=== PATIENT | male | born 1960 | race Caucasian/White ===

== ENCOUNTER 2017-04-21 12:18 | Inpatient (IN) | payer MEDICARE, MEDICAID ==
[~2017-04-21] VITALS: Ht 180.3 cm; Wt 67.2 kg
[2017-04-21 14:36] VITALS: BP 135/83
[2017-04-21] MEDS ORDERED: QUEtiapine FUMARATE 100 MG TABLET PO PRN (16:00)
[2017-04-21] MEDS ORDERED: ZOLPIDEM TARTRATE 10 MG TABLET PO PRN (16:00)
[2017-04-21 16:04] VITALS: BP 120/78
[2017-04-21] MEDS: QUEtiapine FUMARATE 200 MG TABLET PO SCH (21:26)
[2017-04-22 06:31] VITALS: BP 125/90
[2017-04-22 08:20] VITALS: BP 139/66
[2017-04-22 09:23] LABS: BASOPHILS % (AUTO) 0.5 % (0.0-2.0); EOSINOPHILS % (AUTO) 4.9 % (1.0-6.0); HEMOGLOBIN 16.3 g/dL (13.5-17.5); LYMPHOCYTES # (AUTO) 1.3 K/uL (1.0-4.8); LYMPHOCYTES % (AUTO) 22.3 % (22.0-44.0); MEAN CORPUSCULAR HEMOGLOBIN 31.1 pg (26.0-34.0); MEAN CORPUSCULAR HGB CONC 33.9 G/dL (31.0-37.0); MEAN CORPUSCULAR VOLUME 92 fL (80-100); MONOCYTES # (AUTO) 0.4 K/uL (0.1-1.0); MONOCYTES % (AUTO) 6.4 % (2.0-9.0); NEUTROPHILS # (AUTO) 3.8 K/uL (1.8-7.7); NEUTROPHILS % (AUTO) 65.9 % (40.0-70.0); PLATELET COUNT (AUTO) 153 K/uL (150-450); RED BLOOD CELL COUNT(AUTO) 5.25 MIL/uL (4.50-5.90); RED CELL DISTRIBUTION WIDTH 13.1 % (11.5-14.5); WHITE BLOOD COUNT (AUTO) 5.8 K/uL (4.5-11.0)
[2017-04-22 09:31] LABS: ALANINE AMINOTRANSFERASE 21 U/L (12-78); ALBUMIN 3.2 g/dL (3.4-5.0); ANION GAP 6 mmol/L (8-16); ASPARTATE AMINOTRANSFERASE 12 U/L (15-37); BILIRUBIN,TOTAL 0.6 mg/dL (0.1-1.0); CALCIUM, TOTAL 8.4 mg/dL (8.8-10.5); CARBON DIOXIDE 30 mmol/L (22-29); CHLORIDE 107 mmol/L (98-107); CHOL/HDL RATIO 3.9 (4.2-7.3); CREATININE 1.07 mg/dL (0.60-1.30); GLOMERULAR FILTR. RATE CALC > 60 mL/min (>60); POTASSIUM 4.2 mmol/L (3.5-5.1); SODIUM SERUM 143 mmol/L (136-145); TOTAL PROTEIN, SERUM 5.9 g/dL (6.4-8.2); UREA NITROGEN, BLOOD 17 mg/dL (7-18)
[2017-04-22] MEDS: SERTRALINE HCL 50 MG TABLET PO SCH (09:53)
[2017-04-22] MEDS ORDERED: IBUPROFEN 600 MG TABLET PO PRN (10:30)
[2017-04-22] MEDS ORDERED: ACETAMINOPHEN 325 MG TABLET PO PRN (10:30)
[2017-04-22 16:00] VITALS: BP 127/72
[2017-04-22] MEDS: QUEtiapine FUMARATE 200 MG TABLET PO SCH (21:00)
[2017-04-23 08:21] VITALS: BP 123/63
[2017-04-23] MEDS: LORazepam 2 MG TABLET PO PRN ×2 (08:46→17:19)
[2017-04-23] MEDS: SERTRALINE HCL 50 MG TABLET PO SCH (08:46)
[2017-04-23 16:00] VITALS: BP 129/84
[2017-04-23] MEDS: QUEtiapine FUMARATE 200 MG TABLET PO SCH (21:09)
[2017-04-24 06:39] VITALS: BP 129/76
[2017-04-24 08:23] VITALS: BP 126/66
[2017-04-24] MEDS: SERTRALINE HCL 50 MG TABLET PO SCH (08:37)
[2017-04-24] MEDS ORDERED: BISACODYL 5 MG EC TABLET PO PRN (10:00)
[2017-04-24 16:00] VITALS: BP 123/69
[2017-04-24] MEDS: LORazepam 2 MG TABLET PO PRN (17:15)
[2017-04-24] MEDS: QUEtiapine FUMARATE 200 MG TABLET PO SCH (20:38)
[2017-04-25 08:34] VITALS: BP 111/83
[2017-04-25] MEDS: SERTRALINE HCL 50 MG TABLET PO SCH (09:48)
[2017-04-25 16:30] VITALS: BP 112/78
[2017-04-25] MEDS: LORazepam 2 MG TABLET PO PRN (16:38)
[2017-04-25] MEDS: QUEtiapine FUMARATE 200 MG TABLET PO SCH (20:09)
[2017-04-26 09:04] VITALS: BP 124/85
[2017-04-26] MEDS: SERTRALINE HCL 50 MG TABLET PO SCH (09:15)
[2017-04-26] MEDS: LORazepam 2 MG TABLET PO PRN (16:22)
[2017-04-26 17:34] VITALS: BP 125/93
[2017-04-26] MEDS: QUEtiapine FUMARATE 200 MG TABLET PO SCH (20:25)
[2017-04-27 03:42] VITALS: BP 134/75
[2017-04-27 08:29] VITALS: BP 119/74
[2017-04-27] MEDS: SERTRALINE HCL 50 MG TABLET PO SCH (09:31)
[2017-04-27 16:06] VITALS: BP 122/80
[2017-04-27 16:26] VITALS: BP 130/83
[2017-04-27] MEDS: LORazepam 2 MG TABLET PO PRN (18:17)
[2017-04-27] MEDS: QUEtiapine FUMARATE 200 MG TABLET PO SCH (20:46)
[2017-04-28 06:12] VITALS: BP 136/74
[2017-04-28 08:59] VITALS: BP 120/65
[2017-04-28] MEDS: SERTRALINE HCL 50 MG TABLET PO SCH (09:04)
[2017-04-28 16:08] VITALS: BP 136/87
[2017-04-28] MEDS: LORazepam 2 MG TABLET PO PRN (18:55)
[2017-04-28] MEDS: QUEtiapine FUMARATE 200 MG TABLET PO SCH (20:45)
[2017-04-29 08:43] VITALS: BP 105/60
[2017-04-29] MEDS: SERTRALINE HCL 50 MG TABLET PO SCH (09:43)
[2017-04-29] MEDS: LORazepam 2 MG TABLET PO PRN (12:55)
[2017-04-29 16:41] VITALS: BP 123/77
[2017-04-29] MEDS: QUEtiapine FUMARATE 200 MG TABLET PO SCH (20:56)
[2017-04-30 06:30] VITALS: BP 116/62
[2017-04-30 08:24] LABS: CREATINE KINASE, TOTAL 41 U/L (39-308)
[2017-04-30 09:00] VITALS: BP 143/87
[2017-04-30] MEDS: SERTRALINE HCL 50 MG TABLET PO SCH (09:05)
[2017-04-30 16:23] VITALS: BP 139/74
[2017-04-30] MEDS: LORazepam 2 MG TABLET PO PRN (16:30)
[2017-04-30] MEDS: QUEtiapine FUMARATE 200 MG TABLET PO SCH (20:30)
[2017-05-01 01:27] VITALS: BP 103/67
[2017-05-01 07:05] LABS: HEPATITIS Bs ANTIGEN SCREEN P Negative (Negative); HEPATITIS C AB SCREEN <0.1 s/co ratio (0.0-0.9)
[2017-05-01] MEDS: SERTRALINE HCL 50 MG TABLET PO SCH (09:04)
[2017-05-01 09:11] VITALS: BP 116/73
[2017-05-01] MEDS ORDERED: BUSP5TAB20 PO (09:42)
[2017-05-01] MEDS ORDERED: SERT50TA12 PO (09:42)
[2017-05-01] MEDS ORDERED: QUET200T PO (09:42)
[2017-05-01] MEDS ORDERED: BusPIRone HCL 5 MG TABLET PO SCH (10:00)
== END 2017-05-01 11:45 | disposition home or self-care (01) | DRG 885 ==
LOC: B3A 14:52 → B2S 04-25 16:15
DX: F25.1 Schizoaffective disorder, depressive type (principal); R45.851 Suicidal ideations; E88.09 Other disorders of plasma-protein metabolism, not elsewhere classified; F14.10 Cocaine abuse, uncomplicated; G89.4 Chronic pain syndrome; F43.10 Post-traumatic stress disorder, unspecified; K59.00 Constipation, unspecified; Z59.0 Homelessness; Z91.19 Patient's noncompliance with other medical treatment and regimen; Z87.81 Personal history of (healed) traumatic fracture; Z91.5 Personal history of self-harm; Z81.1 Family history of alcohol abuse and dependence
CPT/HCPCS: 80074; 82306; 82607; 82746; 83735; 84439; 84443; 86592; 87081